=== PATIENT | male | born 1990 | race American Indian/Alaskan Native ===

== ENCOUNTER 2020-02-25 09:43 | Outpatient (CLI) | payer MEDICARE ==
[2020-02-25] MEDS ORDERED: SODIUM CHLORIDE 0.9% IRR 500 ML BOTTLE IR ONE (11:17)
== END 2020-02-25 09:44 | disposition home or self-care (01) ==
LOC: WOUND 09:43
PROVIDERS: ATTEND Surgery
DX: L89.224 Pressure ulcer of left hip, stage 4 (principal); L89.214 Pressure ulcer of right hip, stage 4; L89.614 Pressure ulcer of right heel, stage 4; L89.514 Pressure ulcer of right ankle, stage 4; L89.622 Pressure ulcer of left heel, stage 2; G82.21 Paraplegia, complete; Z87.891 Personal history of nicotine dependence
CPT/HCPCS: 11042; 11043; 11046; G0463; 99205

== ENCOUNTER 2020-03-04 14:01 | Outpatient (CLI) | payer MEDICARE ==
[2020-03-04] MEDS ORDERED: SODIUM HYPOCHLORITE, DAKIN'S FULL STRENGTH (0.5%) 473 ML TOPICAL SOLN TP ONE (15:02)
== END 2020-03-04 14:02 | disposition home or self-care (01) ==
LOC: WOUND 14:01
PROVIDERS: ATTEND Surgery
DX: L89.224 Pressure ulcer of left hip, stage 4 (principal); L89.214 Pressure ulcer of right hip, stage 4; L89.614 Pressure ulcer of right heel, stage 4; L89.514 Pressure ulcer of right ankle, stage 4; L89.622 Pressure ulcer of left heel, stage 2; G82.21 Paraplegia, complete; Z87.891 Personal history of nicotine dependence

== ENCOUNTER 2020-03-18 12:54 | Outpatient (CLI) | payer MEDICARE | END 2020-03-18 12:55 | disposition home or self-care (01) | LOC: WOUND 12:54 | PROVIDERS: ATTEND Surgery | DX: L89.224 Pressure ulcer of left hip, stage 4 (principal); L89.214 Pressure ulcer of right hip, stage 4; L89.614 Pressure ulcer of right heel, stage 4; L89.514 Pressure ulcer of right ankle, stage 4; L89.622 Pressure ulcer of left heel, stage 2; G82.21 Paraplegia, complete; Z87.891 Personal history of nicotine dependence ==

== ENCOUNTER 2020-03-22 10:34 | Outpatient (CLI) | payer MEDICARE ==
--- NOTE | 2020-03-22 14:28 | Magnetic Resonance Report ---
MRI RIGHT HIP WITHOUT CONTRAST MRI LEFT HIP WITHOUT CONTRAST INDICATION / CLINICAL INFORMATION: MAIN: PRESSURE ULCER OF RIGHT AND LEFT HIP, bilat. hip pain. COMPARISON: None available. TECHNIQUE: Multisequence, multiplanar images were obtained of each hip. FINDINGS: RIGHT: The femoral head and neck are absent. There is abundant mature heterotopic ossification seen in the r egion which appears to connect the anterolateral aspect of the iliac wing to the greater trochanter. Mild proximal migration of the femur is evident. Deep soft tissue ulceration at the lateral aspect of the hip. No abnormal loss of T1 signal intensity in the bones to suggest presence of acute osteomyel itis. No marrow edema. No organized fluid collection in the soft tissues. Moderate degree of atrophic change in the gluteal muscles. There is edema in the adductor and obturat or muscles. LEFT: The femoral head and neck are absent. Abundant bridging mature heterotopic bone is seen in the region of the hip. Proximal migration of the left femur is noted, greater than that seen on the right. No a bnormal loss of T1 signal intensity. No significant marrow edema. Deep soft tissue ulcer with large d efect appears grossly similar to that on the right side. No associated organized soft tissue fluid co llection. Moderate degree of atrophic change in the gluteal musculature. There is edema in the adductor and obt urator muscles. IMPRESSION: 1. 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 There is abundant mature heterotopic ossification in the region of the hips. 2. Deep soft tissue ulceration at both hips without associated abscess or evidence of acute osteomyel itis. Report dictated by: Jameson Becerra MD Report dictated on: 03/22/2020 1:07 PM I have reviewed the images, agree with this report, and edited this report as needed. Signer Name: Edward Serrano MD FACR Signed: 03/22/2020 2:24 PM Workstation Name: [id number]
== END 2020-03-22 10:35 | disposition home or self-care (01) ==
LOC: MRI 10:34
PROVIDERS: ATTEND Surgery
DX: M62.561 Muscle wasting and atrophy, not elsewhere classified, right lower leg (principal); M79.89 Other specified soft tissue disorders; L89.214 Pressure ulcer of right hip, stage 4; L89.224 Pressure ulcer of left hip, stage 4; Q72.43 Longitudinal reduction defect of femur, bilateral; M89.28 Other disorders of bone development and growth, other site; Z60.3 Acculturation difficulty
CPT/HCPCS: 73721

== ENCOUNTER 2020-04-22 12:44 | Outpatient (CLI) | payer MEDICARE | END 2020-04-22 12:45 | disposition home or self-care (01) | LOC: WOUND 12:44 | PROVIDERS: ATTEND Surgery | DX: L89.224 Pressure ulcer of left hip, stage 4 (principal); L89.214 Pressure ulcer of right hip, stage 4; L89.614 Pressure ulcer of right heel, stage 4; L89.514 Pressure ulcer of right ankle, stage 4; L89.623 Pressure ulcer of left heel, stage 3; L89.326 Pressure-induced deep tissue damage of left buttock; G82.21 Paraplegia, complete; Z87.891 Personal history of nicotine dependence ==

== ENCOUNTER 2020-04-28 08:33 | Outpatient (CLI) | payer MEDICARE ==
--- NOTE | 2020-04-28 11:28 | Magnetic Resonance Report ---
MR RIGHT LOWER EXTREMITY JOINT WITHOUT CONTRAST HISTORY: Foot ulcer, necrosis, evaluate for osteomyelitis TECHNIQUE: Multisequence, multiplanar MRI without contrast was performed through the right ankle. Ple ase note that this examination was supposed to be performed with IV contrast, however, IV access was unable to be obtained. COMPARISON: None. FINDINGS: There is mild to moderate soft tissue swelling and skin induration in the lateral ankle region. A sma ll area skin ulceration containing trace gas is suspected adjacent to the distal fibula. There is a s econd area of shallow skin ulceration lateral to the calcaneus. No discrete abscess is appreciated on noncontrast exam. Mild subchondral bone marrow edema, T1 changes and subtle periosteal thinning is noted in the lateral calcaneus consistent with early osteomyelitis. There is very subtle nonspecific subchondral bone marrow edema in the lateral malleolus which is prob ably reactive in nature. A 3.5 x 1.9 x 1.4 cm chronic bone infarct is identified in the distal tibial metaphysis. The remainin g bone marrow signal is unremarkable. The musculotendinous structures are intact. No tendinopathy or tenosynovitis is appreciated. No ligam entous injury is appreciated. Mild osteoarthritic joint space narrowing is noted at the tibiotalar joint. IMPRESSION: Cellulitis with small areas of skin ulceration laterally as described. No soft tissue abscess is appr eciated. Early calcaneal osteomyelitis. Probable reactive bone marrow edema in the lateral malleolus. 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 Signer Name: Johnnie Saucedo Jr, MD Signed: 04/28/2020 11:24 AM Workstation Name: [id number]
== END 2020-04-28 08:34 | disposition home or self-care (01) ==
LOC: MRI 08:33
PROVIDERS: ATTEND Surgery
DX: L03.115 Cellulitis of right lower limb (principal); L97.313 Non-pressure chronic ulcer of right ankle with necrosis of muscle; M86.8X6 Other osteomyelitis, lower leg; M89.8X6 Other specified disorders of bone, lower leg
CPT/HCPCS: 73721

== ENCOUNTER 2020-05-20 13:08 | Outpatient (CLI) | payer MEDICARE | END 2020-05-20 13:09 | disposition home or self-care (01) | LOC: WOUND 13:08 | PROVIDERS: ATTEND Surgery | DX: L89.224 Pressure ulcer of left hip, stage 4 (principal); L89.214 Pressure ulcer of right hip, stage 4; L89.614 Pressure ulcer of right heel, stage 4; L89.514 Pressure ulcer of right ankle, stage 4; L89.622 Pressure ulcer of left heel, stage 2; G82.21 Paraplegia, complete; Z87.891 Personal history of nicotine dependence | CPT/HCPCS: 97605; 97606 ==